=== PATIENT | male | born 1990 ===

== ENCOUNTER 2019-05-11 21:03 | Inpatient (IN) | payer OTHER ==
[~2019-05-11] VITALS: Ht 180.3 cm; Wt 96.5 kg
[2019-05-11 21:54] LABS: BASOPHILS ABSOLUTE AUTO 0.01 K/mm3 (0.00-0.23); BASOPHILS PERCENT AUTO 0 % (0-2); EOSINOPHILS ABSOLUTE AUTO 0.07 K/mm3 (0.00-0.68); EOSINOPHILS PERCENT AUTO 2 % (0-6); Hematocrit 41.7 % (37.0-53.0); Hemoglobin 13.4 g/dL (13.5-17.5); IMMATURE GRAN ABSOLUTE AUTO 0.01 K/mm3 (0.00-0.10); IMMATURE GRAN PERCENT AUTO 0 % (0-1); LYMPHOCYTES ABSOLUTE AUTO 2.05 K/mm3 (0.84-5.20); LYMPHOCYTES PERCENT AUTO 48 % (21-46); MONOCYTES ABSOLUTE AUTO 0.69 K/mm3 (0.16-1.47); MONOCYTES PERCENT AUTO 16 % (4-13); Mean Corpuscular HGB Conc 32.1 g/dL (31.5-36.5); Mean Corpuscular Volume 78 fL (80-100); Mean Platelet Volume 10.3 fL (9.1-12.4); NEUTROPHILS ABSOLUTE AUTO 1.47 K/mm3 (1.96-9.15); NEUTROPHILS PERCENT AUTO 34 % (41-73); Platelet Count 205 K/mm3 (150-400); RDW Coefficient Variation 14.4 % (11.7-14.2); Red Blood Cell Count 5.37 M/mm3 (4.30-5.90)
[2019-05-11 22:15] LABS: Alanine Aminotransfer (ALT/SGP 29 U/L (12-78); Albumin, Blood 3.6 g/dL (3.4-5.0); Albumin/Globulin Ratio 0.9 (0.8-1.8); Alk Phos 157 U/L (50-136); Anion Gap 7 mmol/L (6-16); Aspartate Aminotrans (AST/SGOT 26 U/L (12-37); Bilirubin, Total 0.6 mg/dL (0.1-1.0); Blood Urea Nitrogen 14 mg/dL (8-24); Bun/Creatinine Ratio 30.9 (12.0-20.0); CO2, Blood 25 mmol/L (21-32); Calcium, Blood 8.5 mg/dL (8.5-10.1); Chloride, Blood 110 mmol/L (98-108); Creatinine, Blood 0.45 mg/dL (0.60-1.20); Globulin, Blood 3.8 g/dL (2.2-4.0); Glomerular Filtration Rate >60 (60-); Glucose, Blood 88 mg/dL (70-99); Sodium, Blood 142 mmol/L (136-145); Total Protein, Blood 7.4 g/dL (6.4-8.2)
[2019-05-11 22:18] LABS: Thyroid Stimulating Hormone <0.005 uIU/mL (0.360-4.800)
[2019-05-11 22:36] LABS: Free Thyroxine >8.00 ng/dL (0.70-1.60)
[2019-05-11 23:55] LABS: Magnesium, Blood 1.8 mg/dL (1.6-2.4); Phosphorus, Blood 4.6 mg/dL (2.5-4.9)
--- NOTE | 2019-05-12 03:26 | NUR ---
Received pt from ed at approx midnight, pt was aox4, pleasant mood, cooperative. Pt educated on plan of care, call light in reach. Assessment as documented.
--- NOTE | 2019-05-12 09:00 | NUR ---
INITIAL ASSESMENT PT ALERT AND ORIENT AND VERY PLEASENT FOLLOWING ALL COMMANDS AND DENIES PAIN. VSS, TACHY IN THE 110S AND AFEBRILE WITH PALP PULSES T/O AND NO EDEMA. RA WITH SATS WNL AND CLEAR T/O. TOLERATING DIET WITH NO N/V AND NO BM. VOIDING DARK YELLOW CLEAR URINE VIA DE OLIVEIRA. PT EXHIBITS BULGING EYES. WILL CONT TO MONITOR
[2019-05-12 10:12] LABS: BASOPHILS ABSOLUTE AUTO 0.01 K/mm3 (0.00-0.23); BASOPHILS PERCENT AUTO 0 % (0-2); EOSINOPHILS PERCENT AUTO 3 % (0-6); Hematocrit 38.5 % (37.0-53.0); Hemoglobin 12.7 g/dL (13.5-17.5); IMMATURE GRAN ABSOLUTE AUTO 0.01 K/mm3 (0.00-0.10); IMMATURE GRAN PERCENT AUTO 0 % (0-1); LYMPHOCYTES ABSOLUTE AUTO 1.38 K/mm3 (0.84-5.20); LYMPHOCYTES PERCENT AUTO 43 % (21-46); MONOCYTES ABSOLUTE AUTO 0.58 K/mm3 (0.16-1.47); MONOCYTES PERCENT AUTO 18 % (4-13); Mean Corpuscular HGB 25.3 pg (26.0-34.0); Mean Corpuscular Volume 77 fL (80-100); Mean Platelet Volume 11.2 fL (9.1-12.4); NEUTROPHILS ABSOLUTE AUTO 1.14 K/mm3 (1.96-9.15); NEUTROPHILS PERCENT AUTO 35 % (41-73); Platelet Count 190 K/mm3 (150-400); RDW Coefficient Variation 14.6 % (11.7-14.2); RDW Standard Deviation 39.9 fL (35.1-46.3); Red Blood Cell Count 5.01 M/mm3 (4.30-5.90); White Blood Cell Count 3.22 K/mm3 (4.00-11.30)
--- NOTE | 2019-05-12 10:39 | NUR ---
Echocardiogram performed.
[2019-05-12 10:40] LABS: Alanine Aminotransfer (ALT/SGP 26 U/L (12-78); Albumin, Blood 3.2 g/dL (3.4-5.0); Alk Phos 115 U/L (50-136); Anion Gap 2 mmol/L (6-16); Aspartate Aminotrans (AST/SGOT 22 U/L (12-37); Bilirubin, Total 0.9 mg/dL (0.1-1.0); Blood Urea Nitrogen 10 mg/dL (8-24); Bun/Creatinine Ratio 28.8 (12.0-20.0); CO2, Blood 28 mmol/L (21-32); Calcium, Blood 8.6 mg/dL (8.5-10.1); Chloride, Blood 111 mmol/L (98-108); Creatinine, Blood 0.35 mg/dL (0.60-1.20); Globulin, Blood 3.3 g/dL (2.2-4.0); Glomerular Filtration Rate >60 (60-); Glucose, Blood 90 mg/dL (70-99); Potassium, Blood 3.5 mmol/L (3.5-5.5); Sodium, Blood 141 mmol/L (136-145); Total Protein, Blood 6.5 g/dL (6.4-8.2)
--- NOTE | 2019-05-12 17:21 | NUR ---
ICU TRANSFER/SHIFT SUMMARY PT TANSFERED FROM ICU IN STABLE CONDITION, A&O AND INDEPENDENT IN THE ROOM. COUNTINOUS PULSE OX D/C AND TELEMETRY IN PLACE WITH NORMAL SINUS RYTHM AND A RATE OF 80 PER NASRIN ENGRAVED ROLLER INSPECTOR @ 1530. PT HAS A SL IN PLACE 20G R A/C AND 18G LEFT FORE ARM. PT HAS CALL LIGHT WITH IN REACH AND WILL COUNTINUE TO MONITOR AND REPORT ON COMING SHIFT.
--- NOTE | 2019-05-13 04:52 | NUR ---
TAX INTERN SUMMARY NO ACUTE CHANGES. PT AAOX4 AND VERY PLEASANT. INDEPENDENT IN ROOM. NO CHANGES ON TELEMETRY, NSR. CONTINUES ON PO IODINE WELL PROPRANOLOL AND METHIMAZOLE FOR HYPERTHYROID TREATMENT. PT DENIES PAIN, SOB, N/V. PT HOPING TO BE DISCHARGED LATER TODAY. CONSULT CALLED IN FOR DR AYOUB. VSS, WILL CONTINUE TO MONITOR.
[2019-05-13 04:55] LABS: BASOPHILS ABSOLUTE AUTO 0.02 K/mm3 (0.00-0.23); BASOPHILS PERCENT AUTO 1 % (0-2); EOSINOPHILS ABSOLUTE AUTO 0.13 K/mm3 (0.00-0.68); EOSINOPHILS PERCENT AUTO 4 % (0-6); Hematocrit 39.5 % (37.0-53.0); IMMATURE GRAN PERCENT AUTO 0 % (0-1); LYMPHOCYTES ABSOLUTE AUTO 1.11 K/mm3 (0.84-5.20); LYMPHOCYTES PERCENT AUTO 36 % (21-46); MONOCYTES ABSOLUTE AUTO 0.57 K/mm3 (0.16-1.47); MONOCYTES PERCENT AUTO 19 % (4-13); Mean Corpuscular HGB 25.1 pg (26.0-34.0); Mean Corpuscular HGB Conc 32.9 g/dL (31.5-36.5); Mean Corpuscular Volume 76 fL (80-100); Mean Platelet Volume 10.9 fL (9.1-12.4); NEUTROPHILS ABSOLUTE AUTO 1.25 K/mm3 (1.96-9.15); NEUTROPHILS PERCENT AUTO 41 % (41-73); Platelet Count 175 K/mm3 (150-400); RDW Coefficient Variation 14.2 % (11.7-14.2); RDW Standard Deviation 39.1 fL (35.1-46.3); Red Blood Cell Count 5.17 M/mm3 (4.30-5.90); White Blood Cell Count 3.08 K/mm3 (4.00-11.30)
[2019-05-13 05:12] LABS: Anion Gap 7 mmol/L (6-16); Blood Urea Nitrogen 11 mg/dL (8-24); Bun/Creatinine Ratio 35.9 (12.0-20.0); CO2, Blood 25 mmol/L (21-32); Calcium, Blood 8.8 mg/dL (8.5-10.1); Chloride, Blood 109 mmol/L (98-108); Creatinine, Blood 0.31 mg/dL (0.60-1.20); Glomerular Filtration Rate >60 (60-); Glucose, Blood 87 mg/dL (70-99); Magnesium, Blood 1.9 mg/dL (1.6-2.4); Potassium, Blood 3.7 mmol/L (3.5-5.5); Sodium, Blood 141 mmol/L (136-145)
[2019-05-13 07:55] LABS: Free Thyroxine 7.75 ng/dL (0.70-1.60); Triiodothyronine, Free 21.81 pg/mL (2.18-3.98)
--- NOTE | 2019-05-13 16:41 | NUR ---
CALLED DR AYOUB @ 9337, ENDO CONSULT, TO FIND OUT STATUS OF CONSULT WITH PATIENT. DR AYOUB EXPLAINED HE IS AWARE OF PATIENT, HE PLACED SOME ORDERS THIS AM, AND WILL GET TO SEE THE PATIENT AT HIS EARLIEST CONVENIENCE. ISTRATE PROVIDED WITH THIS UPDATE AT 1640.
--- NOTE | 2019-05-13 16:44 | NUR ---
SHIFT SUMMARY THE PATIENT IS PLEASANT AND COOPERATIVE WITH STAFF. DENIES PAIN AND DISCOMFORT. INDEPENDANT IN ROOM, SHOWERS SELF. VITALS HAVE BEEN STABLE AND WNL. PATIENT CONTINUES ON TELE MONITORING WITHOUT ANY ABNORMAL REPORTS. UNEVENTFUL SHIFT. AWAITING CONSULT WITH DR AYOUB. CALLS APPROPRIATELY FOR STAFF. WILL CONTINUE TO MONITOR AND PROVIDE CARE NEEDED.
--- NOTE | 2019-05-13 22:25 | NUR ---
PT IS PLEASANT AND COOPERATIVE WITH CARE. DENIES NEEDS OR DISCOMFORT AT THIS TIME. AAOX4, RESP EVEN AND UNLABORED, ON TELE SR PER TECH. STEADY GAIT. VSS. APPEARS IN NO ACUTE DISTRESS. WILL CONTINUE TO MONITOR.
--- NOTE | 2019-05-14 01:19 | NUR ---
PT APPEARS TO BE SLEEPING RESTFULY. RESPIRATOINS ARE EVEN AND UNLABORED.
--- NOTE | 2019-05-14 03:02 | NUR ---
PT SITTING UP IN BED AND IS ON HIS PHONE. NO NEEDS AT THIS TIME.
--- NOTE | 2019-05-14 04:18 | NUR ---
NOC SHIFT SUMMARY NO ACUTE CHANGES NOTED THIS NIGHT. PT HAS SLEPT ON AND OFF THROUGH THE NIGHT. PLEASANT AND COOPERATIVE. VSS. NO COMPLAINTS NOTED. CONSULT WITH DR. AYOUB PENDING. WILL CONTINUE TO MONITOR.
[2019-05-14 04:38] LABS: Hematocrit 42.7 % (37.0-53.0); Mean Corpuscular HGB Conc 32.8 g/dL (31.5-36.5); Mean Corpuscular Volume 76 fL (80-100); Mean Platelet Volume 10.7 fL (9.1-12.4); Platelet Count 191 K/mm3 (150-400); RDW Standard Deviation 38.2 fL (35.1-46.3)
[2019-05-14 04:59] LABS: Anion Gap 4 mmol/L (6-16); Blood Urea Nitrogen 14 mg/dL (8-24); Bun/Creatinine Ratio 40.1 (12.0-20.0); CO2, Blood 27 mmol/L (21-32); Calcium, Blood 9.1 mg/dL (8.5-10.1); Chloride, Blood 108 mmol/L (98-108); Creatinine, Blood 0.35 mg/dL (0.60-1.20); Glomerular Filtration Rate >60 (60-); Glucose, Blood 85 mg/dL (70-99); Potassium, Blood 4.1 mmol/L (3.5-5.5); Sodium, Blood 139 mmol/L (136-145)
--- NOTE | 2019-05-14 10:27 | NUR ---
D/C ORDER FOR TELE RECEIVED. RETURNED TELE BOX TO PCU.
[2019-05-14] MEDS ORDERED: ACET325 PO (10:43)
[2019-05-14] MEDS ORDERED: ONDA4ODT MM (10:44)
[2019-05-14] MEDS ORDERED: METHI10 PO (10:44)
[2019-05-14] MEDS ORDERED: PROP10 PO (10:45)
--- NOTE | 2019-05-14 11:10 | NUR ---
DISCHARGE INSTRUCTIONS EXPLAINED TO PATIENT WELL A PRINTED COPY HANDED TO HIM. NOON MEDICATIONS ADMINISTERED. IV DISCONTINUED. EDUCATIONAL MATERIAL PROVIDED. A MILES [place] PACKET GIVEN TO THE PATIENT TO GET ESTABLISHED WITH A PCP; INSTRUCTIONS THOROUGHLY EXPLAINED TO HOW THAT WORKS. PATIENT STATES HE WILL RIDE HIS BIKE TO [employer] AT THE [facility]ALL FOR HIS [facility]CR[facility]TS AND THEN TO [facility] WHERE HE WILL BE STAYING AT THIS TIME. ALL QUESTIONS ANSWERED. MEDICATIONS TO BE PROVIDED VIA [employer]OVERAGE.
--- NOTE | 2019-05-14 12:26 | NUR ---
PATIENT DISCHARGED TO THE [facility], LEFT BY FOOT AT 1225.
== END 2019-05-14 12:26 | disposition home or self-care (01) | DRG 645 ==
LOC: ER 21:03 → ICUW 23:09 → ER 05-12 00:23 → ICUW 05-12 00:23 → MEDS 05-12 00:23 → ICUE 05-12 00:26 → ICUW 05-12 00:26 → ICUE 05-12 00:26 → MEDS 05-12 15:20 → ENPENDDIS 05-14 10:00 → MEDS 05-14 12:26
PROVIDERS: Emergency Medicine; Family Medicine; Internal Medicine Endocrinology, Diabetes & Metabolism; Nurse Practitioner Acute Care; ADMIT Internal Medicine
DX: E05.91 Thyrotoxicosis, unspecified with thyrotoxic crisis or storm (principal); I48.91 Unspecified atrial fibrillation; Z59.0 Homelessness; I10 Essential (primary) hypertension; H05.20 Unspecified exophthalmos; F17.210 Nicotine dependence, cigarettes, uncomplicated; Z91.14 Patient's other noncompliance with medication regimen; F19.10 Other psychoactive substance abuse, uncomplicated; F10.10 Alcohol abuse, uncomplicated
CPT/HCPCS: 36415; 71046; 76536; 80048; 80053; 83735; 83880; 84100; 84439; 84443; 84481; 85025; 85027; 90686; 93005; 93010; 93306; 96360; 99285-25; G0008; J1650; J7030

== ENCOUNTER 2019-06-10 13:10 | Emergency (ER) | payer OTHER ==
[~2019-06-10] VITALS: Ht 180.3 cm; Wt 102.1 kg
[~2019-06-10 13:10] MED LIST: ACET325 PO; METHI10 PO; ONDA4ODT MM; PROP10 PO
== END 2019-06-10 14:06 | disposition home or self-care (01) ==
LOC: ER 13:10
DX: Z76.0 Encounter for issue of repeat prescription (principal); Z79.899 Other long term (current) drug therapy
CPT/HCPCS: 99281

== ENCOUNTER 2020-09-22 11:28 | Emergency (ER) | payer OTHER ==
[~2020-09-22] VITALS: Ht 188 cm; Wt 113.4 kg
== END 2020-09-22 15:58 | disposition home or self-care (01) ==
LOC: ER 11:28
DX: S01.111A Laceration without foreign body of right eyelid and periocular area, initial encounter (principal); F10.129 Alcohol abuse with intoxication, unspecified; E03.9 Hypothyroidism, unspecified; I10 Essential (primary) hypertension; F17.200 Nicotine dependence, unspecified, uncomplicated; W17.89XA Other fall from one level to another, initial encounter
CPT/HCPCS: 12013; 70450; 99284-25

== ENCOUNTER 2020-12-03 17:28 | Emergency (ER) | payer OTHER ==
[~2020-12-03] VITALS: Ht 182.9 cm; Wt 127.0 kg
== END 2020-12-03 17:56 | disposition home or self-care (01) ==
LOC: ER 17:28
DX: Z48.02 Encounter for removal of sutures (principal); F17.210 Nicotine dependence, cigarettes, uncomplicated

== ENCOUNTER → 2021-03-07 | Outpatient (CLI) | payer OTHER ==
[2021-03-07 17:34] LABS: BASOPHILS ABSOLUTE AUTO 0.03 K/mm3 (0.00-0.23); BASOPHILS PERCENT AUTO 1 % (0-2); EOSINOPHILS ABSOLUTE AUTO 0.09 K/mm3 (0.00-0.68); EOSINOPHILS PERCENT AUTO 2 % (0-6); Hematocrit 37.3 % (37.0-53.0); Hemoglobin 12.3 g/dL (13.5-17.5); IMMATURE GRAN ABSOLUTE AUTO 0.01 K/mm3 (0.00-0.10); IMMATURE GRAN PERCENT AUTO 0 % (0-1); LYMPHOCYTES ABSOLUTE AUTO 2.28 K/mm3 (0.84-5.20); LYMPHOCYTES PERCENT AUTO 40 % (21-46); MONOCYTES ABSOLUTE AUTO 0.28 K/mm3 (0.16-1.47); MONOCYTES PERCENT AUTO 5 % (4-13); Mean Corpuscular HGB 26.1 pg (26.0-34.0); Mean Corpuscular Volume 79 fL (80-100); Mean Platelet Volume 8.8 fL (9.1-12.4); NEUTROPHILS ABSOLUTE AUTO 3.07 K/mm3 (1.96-9.15); NEUTROPHILS PERCENT AUTO 53 % (41-73); Platelet Count 450 K/mm3 (150-400); RDW Standard Deviation 40.3 fL (35.1-46.3); Red Blood Cell Count 4.71 M/mm3 (4.30-5.90); White Blood Cell Count 5.76 K/mm3 (4.00-11.30)
[2021-03-07 17:58] LABS: Alanine Aminotransfer (ALT/SGP 20 U/L (12-78); Albumin, Blood 3.9 g/dL (3.4-5.0); Alk Phos 109 U/L (40-126); Anion Gap 7 mmol/L (6-16); Aspartate Aminotrans (AST/SGOT 22 U/L (12-37); Bilirubin, Total 0.4 mg/dL (0.1-1.0); Blood Urea Nitrogen 7 mg/dL (8-24); Bun/Creatinine Ratio 9.6 (12.0-20.0); CO2, Blood 31 mmol/L (21-32); Calcium, Blood 8.6 mg/dL (8.5-10.1); Chloride, Blood 103 mmol/L (98-108); Creatinine, Blood 0.73 mg/dL (0.60-1.20); Globulin, Blood 3.8 g/dL (2.2-4.0); Glomerular Filtration Rate >60 (60-); Glucose, Blood 91 mg/dL (70-99); Potassium, Blood 4.4 mmol/L (3.5-5.5); Sodium, Blood 141 mmol/L (136-145); Thyroid Stimulating Hormone 1.125 uIU/mL (0.360-4.800); Total Protein, Blood 7.7 g/dL (6.4-8.2)
== END | disposition home or self-care (01) ==
LOC: LAB 17:29 → LAB SHORT 17:29
PROVIDERS: Physician Assistant
DX: E05.00 Thyrotoxicosis with diffuse goiter without thyrotoxic crisis or storm (principal)
CPT/HCPCS: 80053; 82607; 82746; 84425; 84443; 85025